=== PATIENT | female | born 1995 | race Caucasian/White ===

== ENCOUNTER 2017-11-01 20:08 | Emergency (ER) | payer BC ==
[2017-11-01 20:25] VITALS: BP 128/67; PULSE 80; RESP 16; TEMP 98.1; O2SAT 98
[2017-11-01] MEDS ORDERED: IBUPROFEN 600 MG TAB PO ONE (20:28)
--- NOTE | 2017-11-01 20:28 | EDPHY ---
H & P Time Seen by Provider: 11/01/17 20:23 HPI/ROS: CHIEF COMPLAINT: Left ankle injury HISTORY OF PRESENT ILLNESS: Rolled it just prior to arrival playing indoor soccer, or painful with standing. Located on the lateral side but no knee or foot symptoms. REVIEW OF SYSTEMS: No weakness or numbness in foot PAST MEDICAL HISTORY: Negative General Appearance: Alert and conversant, cooperative. Lateral malleolus swelling and tenderness. Medial malleolus nontender. Ankle joint is stable. Skin intact. Normal motor and sensory and dorsalis pedis pulse in the foot. Proximal tib-fib nontender normal range of motion of the knee. Achilles nontender and normal flexion and extension. Emergency Department course/MDM: Reymundo Rivas, left ankle x-ray. 2034: X-rays plan and follow-up discussed with patient and reviewed on the computer system. Air cast splint and activity as tolerated. Smoking Status: Never smoked Constitutional: Initial Vital Signs Temperature (C) 36.7 C 11/01/17 20:22 Heart Rate 80 11/01/17 20:22 Respiratory Rate 16 11/01/17 20:22 Blood Pressure 128/67 H 11/01/17 20:22 O2 Sat (%) 98 11/01/17 20:22 O2 Delivery Mode Room Air Allergies/Adverse Reactions: Milk Containing Products [dairy] Allergy (Verified 11/01/17 20:22) Home Medications: Medication Instructions Recorded Levora-28 Tablet 11/01/17 MDM/Departure - MDM Imaging Results: Imaging Impressions Ankle X-Ray 11/01/17 20:25 Impression: Nothing acute identified. Negative left ankle x-ray Imaging: I viewed and interpreted images myself - Depart Disposition: Home, Routine, Self-Care Clinical Impression: Left ankle sprain Qualifiers: Encounter type: initial encounter Involved ligament of ankle: unspecified ligament Qualified Code(s): S93.402A - Sprain of unspecified ligament of left ankle, initial encounter Condition: Good Instructions: Ankle Sprain (ED) Additional Instructions: Wear brace as needed for pain. Activity as tolerated. Follow up with Orthopedics if not getting better next week. Referrals: Marie Leung MD [Medical Doctor] - 5-7 days, if not improved
== END 2017-11-01 20:51 | disposition home or self-care (01) ==
LOC: MERGE 20:08
DX: S93.402A Sprain of unspecified ligament of left ankle, initial encounter (principal); X58.XXXA Exposure to other specified factors, initial encounter; Y99.8 Other external cause status; Y93.66 Activity, soccer
CPT/HCPCS: L4350